=== PATIENT | female | born 1965 | race African-American/Black ===

== ENCOUNTER 2025-02-13 20:52 | Emergency (ER) | payer SELFPAY ==
[~2025-02-13] VITALS: Ht 160 cm; Wt 71.0 kg
[2025-02-13 20:59] VITALS: BP 119/72; PULSE 98; RESP 20; TEMP 36.8; O2SAT 98
[2025-02-13 21:39] VITALS: TEMP 98.2
[2025-02-13] MEDS: ACETAMINOPHEN 500MG TABLET PO ONE (21:39)
[2025-02-13] MEDS ORDERED: LIDO-53 TP (22:09)
[2025-02-13] MEDS ORDERED: NAPR-1176 MT (22:09)
== END 2025-02-13 22:30 | disposition home or self-care (01) ==
LOC: ER 21:02
DX: M79.601 Pain in right arm (principal); M25.512 Pain in left shoulder; R05.9 Cough, unspecified; I10 Essential (primary) hypertension; Z79.1 Long term (current) use of non-steroidal anti-inflammatories (NSAID); Z88.0 Allergy status to penicillin
CPT/HCPCS: 73030; 99283